=== PATIENT | female | born 1935 | race Caucasian/White ===

== ENCOUNTER → 2016-06-16 | Outpatient (CLI) | payer MEDICARE, MEDICAID ==
[~2016-06-16] MED LIST: DIGO0.1262; DOCU-137; FENO134C; FENO5TAB; GLIP-116; LISI-275; METF-316; SITA100T7
[2016-06-16 13:39] LABS: Basophils # (auto) 0.1 uL; Basophils % (auto) 0.8 % (0.0-2.0); Eosinophils # (auto) 0.2 uL; Eosinophils % (auto) 3.2 % (0.0-7.0); Hematocrit 40.4 % (36.0-46.0); Hemoglobin 13.2 g/dL (12.2-16.2); Lymphocytes # (auto) 1.2 uL; Lymphocytes % (auto) 16.2 % (10.0-50.0); Mean Corpuscular Hgb Conc. 32.7 g/dL (32.0-36.0); Mean Corpuscular Volume 82.6 fL (80.0-100.0); Mean Platelet Volume 7.8 fL (7.4-10.4); Monocytes # (auto) 0.5 uL; Neutrophils # (auto) 5.5 uL; Neutrophils % (auto) 72.8 % (37.0-80.0); Platelet Count (auto) 260 10^3/uL (140-450); White Blood Cell 7.5 10^3/uL (4.4-10.8)
[2016-06-16 14:08] LABS: INR 0.99 (0.9-1.15); Partial Thromboplastin Time 25.4 sec (22.64-33.71); Prothrombin Time 10.2 sec (9.37-12.3)
[2016-06-16 14:21] LABS: Albumin 3.6 g/dL (3.4-5.0); BUN/Creatinine Ratio 20.9; Bilirubin, Total 0.4 mg/dL (0.2-1.0); Calcium 9.2 mg/dL (8.5-10.1); Potassium 4.2 mmol/L (3.5-5.1); Total Protein 7.1 g/dL (6.4-8.2)
== END | disposition home or self-care (01) ==
LOC: LAB 12:54
PROVIDERS: ATTEND Internal Medicine
DX: Z01.812 Encounter for preprocedural laboratory examination (principal)
CPT/HCPCS: 36415; 80053; 83036; 85025; 85610; 85730

== ENCOUNTER 2016-07-07 13:43 | Emergency (ER) | payer MEDICARE, MEDICAID ==
[~2016-07-07] VITALS: Ht 152.4 cm; Wt 70.8 kg
[2016-07-07] MEDS ORDERED: SODIUM CHLORIDE 0.9% 1,000 ML IVB ONE (18:21)
[2016-07-07 18:55] LABS: Urine Bilirubin Negative (Negative); Urine Blood Negative /uL (Negative); Urine Color Yellow (Yellow); Urine Glucose TRACE mg/dL (Normal); Urine Ketone Negative (Negative); Urine Nitrite Negative (Negative); Urine RBC <1 /hpf (0 - 4); Urine Squamous Epithelial Cell FEW /hpf (<5); Urine Urobilinogen Normal (Negative)
[2016-07-07 19:14] LABS: Basophils # (auto) 0.1 uL; Basophils % (auto) 0.8 % (0.0-2.0); Eosinophils # (auto) 0.3 uL; Eosinophils % (auto) 3.6 % (0.0-7.0); Hematocrit 38.2 % (36.0-46.0); Hemoglobin 12.5 g/dL (12.2-16.2); Lymphocytes # (auto) 1.2 uL; Lymphocytes % (auto) 17.2 % (10.0-50.0); Mean Corpuscular Hemoglobin 27.1 pg (28.0-32.0); Mean Corpuscular Hgb Conc. 32.7 g/dL (32.0-36.0); Mean Platelet Volume 7.1 fL (7.4-10.4); Monocytes # (auto) 0.5 uL; Monocytes % (auto) 6.6 % (0.0-12.0); Neutrophils # (auto) 5.2 uL; Neutrophils % (auto) 71.8 % (37.0-80.0); Platelet Count (auto) 321 10^3/uL (140-450); Red Cell Distribution Width 15.2 % (11.6-16.0); White Blood Cell 7.3 10^3/uL (4.4-10.8)
[2016-07-07 19:25] LABS: INR 1.04 (0.9-1.15); Partial Thromboplastin Time 25.7 sec (22.64-33.71); Prothrombin Time 10.7 sec (9.37-12.3)
[2016-07-07 19:37] LABS: Albumin 2.9 g/dL (3.4-5.0); BUN/Creatinine Ratio 20.3; Calcium 8.7 mg/dL (8.5-10.1); Magnesium 1.9 mg/dL (1.6-2.6)
[2016-07-07 19:40] LABS: Bilirubin, Total 0.3 mg/dL (0.2-1.0); Total Protein 6.5 g/dL (6.4-8.2)
[2016-07-07] MEDS ORDERED: GLYCERIN ADULT RECTAL SUPP PR ONE (21:00)
[2016-07-07] MEDS ORDERED: FLEET ENEMA(ADULT) 135 ML PR ONE (21:00)
[2016-07-07 22:59] VITALS: BP 143/92
== END 2016-07-07 23:40 | disposition home or self-care (01) ==
LOC: ER 13:51
DX: R10.9 Unspecified abdominal pain (principal); K59.00 Constipation, unspecified; I25.10 Atherosclerotic heart disease of native coronary artery without angina pectoris; E11.9 Type 2 diabetes mellitus without complications; I10 Essential (primary) hypertension; E07.9 Disorder of thyroid, unspecified; Z90.49 Acquired absence of other specified parts of digestive tract; Z88.0 Allergy status to penicillin
CPT/HCPCS: 36415; 71010; 74176; 80053; 81001; 82150; 83690; 83735; 85025; 85610; 85730; 94761; 96360; 99285; J7030

== ENCOUNTER → 2016-07-21 | Outpatient (CLI) | payer MEDICARE, MEDICAID ==
[~2016-07-21] MED LIST changes: +ALBUTEROL SULF 2.5 MG/0.5ML(0.5%) NEB SOLN ONE
== END | disposition home or self-care (01) ==
LOC: RT 08:48
PROVIDERS: ATTEND Internal Medicine Pulmonary Disease
DX: J84.112 Idiopathic pulmonary fibrosis (principal)
CPT/HCPCS: 94060

== ENCOUNTER → 2016-09-17 | Outpatient (CLI) | payer MEDICARE, MEDICAID ==
[~2016-09-17] MED LIST changes: -ALBUTEROL SULF 2.5 MG/0.5ML(0.5%) NEB SOLN ONE
[2016-09-17 14:36] LABS: Basophils # (auto) 0 uL; Basophils % (auto) 0.6 % (0.0-2.0); Eosinophils # (auto) 0.2 uL; Eosinophils % (auto) 2.3 % (0.0-7.0); Hematocrit 40.3 % (36.0-46.0); Hemoglobin 13.3 g/dL (12.2-16.2); Lymphocytes # (auto) 0.9 uL; Lymphocytes % (auto) 14.2 % (10.0-50.0); Mean Corpuscular Hemoglobin 27.5 pg (28.0-32.0); Mean Corpuscular Volume 83.3 fL (80.0-100.0); Mean Platelet Volume 7.2 fL (7.4-10.4); Monocytes # (auto) 0.4 uL; Monocytes % (auto) 6.6 % (0.0-12.0); Neutrophils % (auto) 76.3 % (37.0-80.0); Platelet Count (auto) 283 10^3/uL (140-450); White Blood Cell 6.6 10^3/uL (4.4-10.8)
[2016-09-17 15:02] LABS: Albumin 3.3 g/dL (3.4-5.0); BUN/Creatinine Ratio 20.8; Bilirubin, Total 0.4 mg/dL (0.2-1.0); Calcium 9.2 mg/dL (8.5-10.1); INR 0.96 (0.9-1.15); Partial Thromboplastin Time 25.6 sec (22.64-33.71); Potassium 4.2 mmol/L (3.5-5.1); Prothrombin Time 10.4 sec (9.37-12.3); Total Protein 6.9 g/dL (6.4-8.2)
[2016-09-17 15:31] LABS: Urine Bilirubin Negative (Negative); Urine Blood Negative /uL (Negative); Urine Color Yellow (Yellow); Urine Glucose 4+ mg/dL (Normal); Urine Ketone Negative (Negative); Urine Nitrite Negative (Negative); Urine RBC 1 /hpf (0 - 4); Urine pH 5.5 (5.0-8.0)
== END | disposition home or self-care (01) ==
LOC: LAB 14:21
PROVIDERS: ATTEND Internal Medicine
DX: Z01.818 Encounter for other preprocedural examination (principal)
CPT/HCPCS: 36415; 80053; 81001; 83036; 85025; 85610; 85730

== ENCOUNTER 2018-05-17 11:41 | Emergency (ER) | payer MEDICARE, MEDICAID ==
[~2018-05-17] VITALS: Ht 152.4 cm; Wt 70.3 kg
[~2018-05-17 11:41] MED LIST changes: -DOCU-137; +DOCU1CAP54; -METF-316; +METF-372; +SENN-51 PO
[2018-05-17] MEDS ORDERED: SODIUM CHLORIDE 0.9% 1,000 ML IVB ONE (12:55)
[2018-05-17] MEDS ORDERED: FLEET MINERAL OIL ENEMA 133 ML PR ONE (13:00)
[2018-05-17 14:24] LABS: Basophils # (auto) 0.1 uL; Basophils % (auto) 1.3 % (0.0-2.0); Eosinophils # (auto) 0.2 uL; Eosinophils % (auto) 3.6 % (0.0-7.0); Hematocrit 41.1 % (36.0-46.0); Hemoglobin 14.1 g/dL (12.2-16.2); Lymphocytes # (auto) 0.8 uL; Lymphocytes % (auto) 11.2 % (10.0-50.0); Mean Corpuscular Hemoglobin 28.9 pg (28.0-32.0); Mean Corpuscular Hgb Conc. 34.2 g/dL (32.0-36.0); Mean Corpuscular Volume 84.5 fL (80.0-100.0); Monocytes # (auto) 0.5 uL; Monocytes % (auto) 7.9 % (0.0-12.0); Neutrophils # (auto) 5.2 uL; Nucleated Red Blood Cells % 0.1 %; Platelet Count (auto) 271 10^3/uL (140-450); Red Blood Cells 4.87 10^6/uL (4.0-5.20); Red Cell Distribution Width 14.6 % (11.8-14.3); White Blood Cell 6.8 10^3/uL (4.4-10.8)
[2018-05-17 14:28] VITALS: BP 149/73
[2018-05-17 14:28] LABS: Urine Bacteria NONE SEEN /hpf (None Seen); Urine Blood Negative /uL (Negative); Urine Specific Gravity 1.021 (1.001-1.035); Urine WBC 9 /hpf (0 - 5)
[2018-05-17 14:33] LABS: Albumin 3.3 g/dL (3.4-5.0); Calcium 8.9 mg/dL (8.5-10.1); Magnesium 1.9 mg/dL (1.6-2.6); Potassium 4.7 mmol/L (3.5-5.1)
[2018-05-17 14:36] LABS: BUN/Creatinine Ratio 28.2; Bilirubin, Total 0.5 mg/dL (0.2-1.0); Total Protein 6.9 g/dL (6.4-8.2)
== END 2018-05-17 16:06 | disposition home or self-care (01) ==
LOC: ER 11:46
DX: K59.00 Constipation, unspecified (principal); E11.65 Type 2 diabetes mellitus with hyperglycemia; N39.0 Urinary tract infection, site not specified; E46 Unspecified protein-calorie malnutrition; I25.10 Atherosclerotic heart disease of native coronary artery without angina pectoris; E11.9 Type 2 diabetes mellitus without complications; I10 Essential (primary) hypertension; E07.9 Disorder of thyroid, unspecified; Z90.49 Acquired absence of other specified parts of digestive tract; Z88.0 Allergy status to penicillin; Z79.84 Long term (current) use of oral hypoglycemic drugs; Z79.899 Other long term (current) drug therapy; Z68.30 Body mass index [BMI] 30.0-30.9, adult
CPT/HCPCS: 36415; 74176; 80053; 80162; 81001; 83690; 83735; 85025; 96360; 99284; J7030

== ENCOUNTER 2018-06-23 21:54 | Emergency (ER) | payer MEDICARE, MEDICAID ==
[~2018-06-23] VITALS: Ht 152.4 cm; Wt 72.1 kg
[2018-06-23 23:30] LABS: Basophils # (auto) 0.1 uL; Basophils % (auto) 0.9 % (0.0-2.0); Eosinophils # (auto) 0.2 uL; Hematocrit 40.7 % (36.0-46.0); Hemoglobin 13.7 g/dL (12.2-16.2); Lymphocytes # (auto) 0.6 uL; Lymphocytes % (auto) 7.4 % (10.0-50.0); Mean Corpuscular Hemoglobin 28.4 pg (28.0-32.0); Mean Corpuscular Hgb Conc. 33.6 g/dL (32.0-36.0); Mean Corpuscular Volume 84.3 fL (80.0-100.0); Monocytes # (auto) 0.5 uL; Neutrophils # (auto) 6.8 uL; Neutrophils % (auto) 83.7 % (37.0-80.0); Platelet Count (auto) 253 10^3/uL (140-450); Red Blood Cells 4.83 10^6/uL (4.0-5.20); Red Cell Distribution Width 14.5 % (11.8-14.3); White Blood Cell 8.1 10^3/uL (4.4-10.8)
[2018-06-23 23:34] LABS: Albumin 3.2 g/dL (3.4-5.0); Calcium 8.4 mg/dL (8.5-10.1); Potassium 4.5 mmol/L (3.5-5.1)
[2018-06-23 23:37] LABS: Bilirubin, Total 0.4 mg/dL (0.2-1.0); Total Protein 6.8 g/dL (6.4-8.2)
[2018-06-24 05:05] VITALS: BP 165/76
== END 2018-06-24 04:56 | disposition home or self-care (01) ==
LOC: ER 21:54
DX: K59.00 Constipation, unspecified (principal); E11.9 Type 2 diabetes mellitus without complications; I10 Essential (primary) hypertension; E07.9 Disorder of thyroid, unspecified; I25.10 Atherosclerotic heart disease of native coronary artery without angina pectoris; Z90.49 Acquired absence of other specified parts of digestive tract; Z88.0 Allergy status to penicillin
CPT/HCPCS: 36415; 74018; 80053; 82962; 85025

== ENCOUNTER 2018-07-14 13:02 | Emergency (ER) | payer MEDICARE, MEDICAID ==
[~2018-07-14] VITALS: Ht 152.4 cm; Wt 70.3 kg
[~2018-07-14 13:02] MED LIST changes: +GLIP-110; +LEVO25TA45; +METF-370; +PIOG15TA38
[2018-07-14 14:50] LABS: Basophils # (auto) 0.1 uL; Basophils % (auto) 1.2 % (0.0-2.0); Eosinophils # (auto) 0.1 uL; Eosinophils % (auto) 1.7 % (0.0-7.0); Hematocrit 39.1 % (36.0-46.0); Hemoglobin 13.4 g/dL (12.2-16.2); Lymphocytes # (auto) 0.9 uL; Lymphocytes % (auto) 10.9 % (10.0-50.0); Mean Corpuscular Hemoglobin 28.3 pg (28.0-32.0); Mean Corpuscular Hgb Conc. 34.2 g/dL (32.0-36.0); Mean Corpuscular Volume 82.6 fL (80.0-100.0); Monocytes # (auto) 0.5 uL; Monocytes % (auto) 5.9 % (0.0-12.0); Neutrophils # (auto) 6.6 uL; Neutrophils % (auto) 80.3 % (37.0-80.0); Platelet Count (auto) 270 10^3/uL (140-450); Red Blood Cells 4.74 10^6/uL (4.0-5.20); Red Cell Distribution Width 15.2 % (11.8-14.3); White Blood Cell 8.2 10^3/uL (4.4-10.8)
[2018-07-14 15:10] LABS: Albumin 3.1 g/dL (3.4-5.0); Anion Gap 10 (5-15); Blood Urea Nitrogen 15 mg/dL (7-18); Calcium 8.5 mg/dL (8.5-10.1); Carbon Dioxide 22 mmol/L (21-32); Chloride 107 mmol/L (98-107); Glucose 146 mg/dL (74-106); Potassium 4.2 mmol/L (3.5-5.1); Sodium 139 mmol/L (136-145)
[2018-07-14 15:12] LABS: Alanine Aminotransferase 16 U/L (13-56); Aspartate Aminotransferase 10 U/L (15-37); BUN/Creatinine Ratio 20.8; GFR African American 99 mL/min; GFR Non-African American 82 mL/min
[2018-07-14 15:28] LABS: Alkaline Phosphatase 82 U/L (45-117); Bilirubin, Total 0.5 mg/dL (0.2-1.0); Total Protein 6.5 g/dL (6.4-8.2)
[2018-07-14] MEDS ORDERED: FLEET ENEMA(ADULT) 135 ML PR ONE (16:15)
[2018-07-14 16:40] LABS: Urine Bacteria NONE SEEN /hpf (None Seen); Urine Blood Negative /uL (Negative); Urine Specific Gravity 1.011 (1.001-1.035); Urine WBC 1 /hpf (0 - 5)
[2018-07-14 18:00] VITALS: BP 145/94
== END 2018-07-14 18:14 | disposition home or self-care (01) ==
LOC: ER 13:08 → MERGE 13:08 → ER 18:14
DX: K59.00 Constipation, unspecified (principal); M54.9 Dorsalgia, unspecified; E11.9 Type 2 diabetes mellitus without complications; I10 Essential (primary) hypertension; E78.5 Hyperlipidemia, unspecified; Z90.89 Acquired absence of other organs; Z90.49 Acquired absence of other specified parts of digestive tract; Z88.0 Allergy status to penicillin
CPT/HCPCS: 36415; 71046; 74176; 80053; 81001; 84484; 85025; 93005

== ENCOUNTER 2018-07-20 21:45 | Emergency (ER) | payer MEDICARE, MEDICAID ==
[~2018-07-20] VITALS: Ht 152.4 cm; Wt 72.6 kg
[2018-07-20 22:11] LABS: Urine WBC None Seen /hpf (0 - 5)
[2018-07-20 22:17] LABS: Urine Bacteria NONE SEEN /hpf (None Seen); Urine Blood Negative /uL (Negative); Urine Specific Gravity 1.007 (1.001-1.035)
[2018-07-20 22:32] LABS: Basophils # (auto) 0 uL; Basophils % (auto) 0.3 % (0.0-2.0); Eosinophils # (auto) 0.1 uL; Eosinophils % (auto) 2.1 % (0.0-7.0); Hematocrit 41.4 % (36.0-46.0); Hemoglobin 13.9 g/dL (12.2-16.2); Lymphocytes # (auto) 0.6 uL; Lymphocytes % (auto) 7.9 % (10.0-50.0); Mean Corpuscular Hemoglobin 28.2 pg (28.0-32.0); Mean Corpuscular Hgb Conc. 33.7 g/dL (32.0-36.0); Mean Corpuscular Volume 83.9 fL (80.0-100.0); Monocytes # (auto) 0.5 uL; Monocytes % (auto) 7.4 % (0.0-12.0); Neutrophils # (auto) 5.8 uL; Neutrophils % (auto) 82.3 % (37.0-80.0); Nucleated Red Blood Cells % 0.1 %; Platelet Count (auto) 292 10^3/uL (140-450); Red Blood Cells 4.93 10^6/uL (4.0-5.20); Red Cell Distribution Width 15.2 % (11.8-14.3); White Blood Cell 7.1 10^3/uL (4.4-10.8)
[2018-07-20 22:49] LABS: Alanine Aminotransferase 13 U/L (13-56); Albumin 3.1 g/dL (3.4-5.0); Anion Gap 11 (5-15); Aspartate Aminotransferase 14 U/L (15-37); BUN/Creatinine Ratio 18.4; Blood Urea Nitrogen 18 mg/dL (7-18); Calcium 8.3 mg/dL (8.5-10.1); Carbon Dioxide 21 mmol/L (21-32); Chloride 107 mmol/L (98-107); GFR African American 70 mL/min; GFR Non-African American 58 mL/min; Glucose 229 mg/dL (74-106); Potassium 4.1 mmol/L (3.5-5.1); Sodium 139 mmol/L (136-145)
[2018-07-20 22:55] LABS: Alkaline Phosphatase 84 U/L (45-117); Bilirubin, Total 0.4 mg/dL (0.2-1.0); Total Protein 6.8 g/dL (6.4-8.2)
[2018-07-21] MEDS ORDERED: MAGNESIUM CITRATE SOLUTION 300 ML BTL PO ONE (03:30)
[2018-07-21 05:04] VITALS: BP 132/100
== END 2018-07-21 03:28 | disposition home or self-care (01) ==
LOC: EDBD 21:45 → ER 21:50
DX: K59.00 Constipation, unspecified (principal); I25.10 Atherosclerotic heart disease of native coronary artery without angina pectoris; E11.9 Type 2 diabetes mellitus without complications; I10 Essential (primary) hypertension; E07.9 Disorder of thyroid, unspecified; Z88.0 Allergy status to penicillin; Z79.84 Long term (current) use of oral hypoglycemic drugs; Z79.899 Other long term (current) drug therapy; Z90.49 Acquired absence of other specified parts of digestive tract
CPT/HCPCS: 36415; 74176; 80053; 81001; 82962; 84484; 85025

== ENCOUNTER → 2018-08-01 | Outpatient (CLI) | payer MEDICARE, MEDICAID | END | disposition home or self-care (01) | LOC: MERGE 08:30 → XY 09:01 | PROVIDERS: ATTEND Internal Medicine | DX: R93.89 Abnormal findings on diagnostic imaging of other specified body structures (principal) | CPT/HCPCS: 78306 ×2; A9503 ==

== ENCOUNTER 2018-08-13 12:43 | Inpatient (IN) | payer MEDICARE, MEDICAID | END 2018-08-18 19:22 | LOC: TELE-WESTW 08-14 14:19 → ER 12:43 → TELE 23:15 | DX: R55 Syncope and collapse (principal); J18.9 Pneumonia, unspecified organism; E44.1 Mild protein-calorie malnutrition; E03.9 Hypothyroidism, unspecified; E11.40 Type 2 diabetes mellitus with diabetic neuropathy, unspecified; J09.X2 Influenza due to identified novel influenza A virus with other respiratory manifestations ==

== ENCOUNTER 2018-09-01 23:02 | Emergency (ER) | payer MEDICARE, MEDICAID ==
[~2018-09-01] VITALS: Ht 162.6 cm; Wt 83.9 kg
[2018-09-02 00:11] LABS: Basophils # (auto) 0.1 uL; Basophils % (auto) 1.1 % (0.0-2.0); Eosinophils # (auto) 0.1 uL; Eosinophils % (auto) 1.3 % (0.0-7.0); Hematocrit 41.3 % (36.0-46.0); Lymphocytes # (auto) 0.6 uL; Mean Corpuscular Hemoglobin 28.4 pg (28.0-32.0); Mean Corpuscular Hgb Conc. 33.9 g/dL (32.0-36.0); Mean Corpuscular Volume 83.6 fL (80.0-100.0); Monocytes # (auto) 0.5 uL; Monocytes % (auto) 6.7 % (0.0-12.0); Neutrophils # (auto) 6.3 uL; Neutrophils % (auto) 82.9 % (37.0-80.0); Platelet Count (auto) 311 10^3/uL (140-450); Red Blood Cells 4.94 10^6/uL (4.0-5.20); Red Cell Distribution Width 15.4 % (11.8-14.3); White Blood Cell 7.6 10^3/uL (4.4-10.8)
[2018-09-02 00:28] LABS: Alanine Aminotransferase 15 U/L (13-56); Albumin 2.9 g/dL (3.4-5.0); Anion Gap 9 (5-15); Aspartate Aminotransferase 13 U/L (15-37); BUN/Creatinine Ratio 17.6; Blood Alcohol < 3.0 mg/dL (0-5); Blood Urea Nitrogen 16 mg/dL (7-18); Calcium 8.9 mg/dL (8.5-10.1); Carbon Dioxide 24 mmol/L (21-32); Chloride 105 mmol/L (98-107); GFR African American 76 mL/min; GFR Non-African American 63 mL/min; Potassium 4.1 mmol/L (3.5-5.1); Sodium 138 mmol/L (136-145)
[2018-09-02 00:32] LABS: Alkaline Phosphatase 103 U/L (45-117); Bilirubin, Total 0.3 mg/dL (0.2-1.0); Total Protein 6.9 g/dL (6.4-8.2)
[2018-09-02 00:36] LABS: Glucose 494 mg/dL (74-106)
[2018-09-02 01:34] LABS: Urine Bacteria NONE SEEN /hpf (None Seen); Urine Blood Negative /uL (Negative); Urine Mucus FEW (None Seen); Urine Specific Gravity 1.029 (1.001-1.035); Urine WBC 2 /hpf (0 - 5)
[2018-09-02 01:44] LABS: Amphetamine Screen, Urine NEGATIVE (NEGATIVE); Barbiturate Scree,Urine POSITIVE (NEGATIVE); Benzodiazephine Screen, Urine NEGATIVE (NEGATIVE); Cannabinoid Screen, Urine NEGATIVE (NEGATIVE); Cocaine Screen, Urine NEGATIVE (NEGATIVE); Opiate Scree,Urine NEGATIVE (NEGATIVE); Phencyclidine Screen, Urine NEGATIVE (NEGATIVE)
[2018-09-02 07:15] VITALS: BP 116/63
== END 2018-09-02 08:55 | disposition home or self-care (01) ==
LOC: EDBD 23:02 → ER 23:07
DX: T50.901A Poisoning by unspecified drugs, medicaments and biological substances, accidental (unintentional), initial encounter (principal); R53.1 Weakness; W19.XXXA Unspecified fall, initial encounter; Y93.9 Activity, unspecified; Y99.8 Other external cause status; Y92.89 Other specified places as the place of occurrence of the external cause
CPT/HCPCS: 36415; 70450; 80053; 80307; 80320; 81001; 83605; 84484; 85025

== ENCOUNTER 2018-10-08 22:52 | Inpatient (IN) | payer MEDICARE, MEDICAID ==
[~2018-10-08] VITALS: Ht 157.5 cm; Wt 59.4 kg
[2018-10-09 00:49] LABS: Basophils # (auto) 0.1 uL; Basophils % (auto) 0.9 % (0.0-2.0); Eosinophils # (auto) 0.1 uL; Eosinophils % (auto) 1.9 % (0.0-7.0); Hematocrit 43.6 % (36.0-46.0); Hemoglobin 14.4 g/dL (12.2-16.2); Lymphocytes # (auto) 0.8 uL; Mean Corpuscular Hgb Conc. 33.1 g/dL (32.0-36.0); Mean Corpuscular Volume 84.5 fL (80.0-100.0); Monocytes # (auto) 0.6 uL; Monocytes % (auto) 8.9 % (0.0-12.0); Neutrophils # (auto) 5.1 uL; Neutrophils % (auto) 76.3 % (37.0-80.0); Nucleated Red Blood Cells % 0.4 %; Platelet Count (auto) 249 10^3/uL (140-450); Red Blood Cells 5.16 10^6/uL (4.0-5.20); Red Cell Distribution Width 15.6 % (11.8-14.3); White Blood Cell 6.7 10^3/uL (4.4-10.8)
[2018-10-09 01:00] LABS: Urine Bacteria NONE SEEN /hpf (None Seen); Urine Blood Negative /uL (Negative); Urine Specific Gravity 1.026 (1.001-1.035); Urine WBC 2 /hpf (0 - 5)
[2018-10-09 01:05] LABS: Potassium 4.6 mmol/L (3.5-5.1)
[2018-10-09 01:10] LABS: Albumin 2.9 g/dL (3.4-5.0); Calcium 8.5 mg/dL (8.5-10.1)
[2018-10-09 01:16] LABS: BUN/Creatinine Ratio 19.4; Bilirubin, Total 0.5 mg/dL (0.2-1.0); Total Protein 6.3 g/dL (6.4-8.2)
[2018-10-09] MEDS ORDERED: LORazepam 2MG/ML-1ML VIAL IV ONE (02:00)
[2018-10-09] MEDS ORDERED: ACETAMINOPHEN 325 MG TAB PO PRN (02:45)
[2018-10-09] MEDS ORDERED: DEXTROSE (50%) 50ML SYRG IV PRN (02:45)
[2018-10-09] MEDS ORDERED: MORPHINE SULF INJ 2 MG/ML SYRINGE 1ML IV PRN (02:45)
[2018-10-09] MEDS ORDERED: ONDANSETRON HCL 4 MG/2 ML VIAL IV PRN (02:45)
[2018-10-09] MEDS ORDERED: NITROGLYCERIN 0.4 MG SL TAB SL PRN (02:45)
[2018-10-09] MEDS: SODIUM CHLORIDE 0.9% 1,000 ML IV SCH ×2 (03:48→18:07)
--- NOTE | 2018-10-09 03:48 | NUR ---
Telemetry admit from ER ALBERTO WILKS admitted to Telemetry unit after no SBAR received. Patient oriented to JOVON FRANCOIS, RN primary RN, unit, room, bed, and unit policies regarding patient care and visiting hours. Patient now on continuous telemetry monitoring, tele box HC-37 and telemetry reading on arrival to unit is sinus rhythm at 85 beats per minute with a bundle branch block. Patient weighed by bedscale and encouraged to call if they need something. All questions and concerns addressed. Patient very lethargic on admission, awakens to name and touch, responds "si" or "no" in Bermudian, but mumbles and is incomprehensible to glove wrapper. Bed in lowest locked position, side rails up x2, call light within reach, sitter at bedside. Will continue to monitor.
[2018-10-09 04:00] VITALS: BP 112/60
[2018-10-09 04:33] VITALS: BP 112/60
--- NOTE | 2018-10-09 04:43 | NUR ---
VACCINATIONS UNABLE TO OBTAIN INFORMATION FORM PATIENT. PATIENT IS LETHARGIC UNABLE TO ANSWER ANY QUESTIONS
--- NOTE | 2018-10-09 04:44 | NUR ---
MED REC UNABLE TO VERIFY HOME MEDS PATIENT IS LETHARGIC, DOES NOT ANSWER ANY QUESTIONS BEING ASKED
[2018-10-09] MEDS: LEVOTHYROXINE SODIUM 50 MCG TAB PO SCH (06:24)
[2018-10-09] MEDS: ACCU-CHEK COMFORT CURVE STRIP VI SCH ×4 (06:26→22:35)
[2018-10-09] MEDS: InsuLIN REG 1unit/0.01ml Soln (100units/ml) SC SCH ×4 (06:33→22:35)
--- NOTE | 2018-10-09 07:13 | NUR ---
Family phone number Patient's son is John, phone number [phone]. Updated John on plan of care after password verified. Patient remains lethargic and thus unable to establish password, but password for patient's previous visits noted to have been "[id number]". All questions and concerns addressed to son Addendum: 10/09/18 at 0750 by JOVON FRANCOIS RN RN CORRECTION: Last sentence should read, "All questions and concerns from son addressed."
--- NOTE | 2018-10-09 07:15 | NUR ---
Closing Note Patient lying in bed, eyes closed, respirations even and unlabored, appears asleep. No s/s of distress. Sitter at bedside. Care endorsed to dayshift RN.
--- NOTE | 2018-10-09 07:48 | NUR ---
Opening Shift Note Assumed care of patient, in bed asleep. No S/S of distress/SOB or pain. Sitter at bedside. Patient is very drowsy, will follow up with instructions on POC and to call for assist PRN, will continue to monitor for changes Q1hr and PRN.
[2018-10-09 08:50] VITALS: BP 103/58
[2018-10-09] MEDS ORDERED: FAMOTIDINE 20 MG TAB PO SCH (10:00)
--- NOTE | 2018-10-09 10:00 | NUR ---
AM medications Patient is still asleep, unable to administer am medications at this time.
--- NOTE | 2018-10-09 10:15 | NUR ---
[facility] Nurse from [facility] in to see patient. The patient is very drowsy, slightly opens eyes to name but not communicating otherwise. She is unable to sign documents at this time.
--- NOTE | 2018-10-09 10:30 | NUR ---
[facility] Leeanna from [facility] called for report on patient, unable to give report at this time, working with another patient. She will call back later.
[2018-10-09] MEDS: ENOXAPARIN SOD 40 MG/0.4 ML SYRINGE SC SCH (10:36)
--- NOTE | 2018-10-09 11:40 | NUR ---
[facility] Leeanna from [facility] called ([phone]) expressing concerns that patient is unable to take care of herself and her son who cares for her is unable to adequately cater to her needs. She stated that they were actively trying to find placement for the patient prior to her admission. She believes that the patient would benefit from SNF placement where her needs can be catered to.
--- NOTE | 2018-10-09 11:48 | NUR ---
Son called for update on patient's condition. Patient is still asleep. Only opens eyes for less than 1 second to name.
--- NOTE | 2018-10-09 11:50 | NUR ---
Asleep Patient still asleep in bed. She opens her eyes slightly to name, but no verbal response. Appears very lethargic.
[2018-10-09 13:00] VITALS: BP 154/72
--- NOTE | 2018-10-09 13:35 | NUR ---
AM medications Patient is still drowsy but more awake. Ate small amount of her lunch. AM medications administered.
[2018-10-09] MEDS: LISINOPRIL 5 MG TAB PO SCH (13:38)
[2018-10-09] MEDS: DIGOXIN 0.125 MG TAB PO SCH (13:39)
[2018-10-09] MEDS: FAMOTIDINE 20 MG TAB PO SCH (13:40)
--- NOTE | 2018-10-09 16:40 | NUR ---
Patient sitting up in chair at bedside, calling for her son John. Phone call made to him ([phone]) and he was transferred to the patient's room so he could speak with her.
[2018-10-09 17:00] VITALS: BP 117/68
[2018-10-09] MEDS: Glucerna Carbsteady SHAKE Vanilla 8oz PO SCH (18:07)
--- NOTE | 2018-10-09 19:00 | NUR ---
Opening Shift Note Assumed care of patient, awake and alert. No S/S of distress/SOB or pain. Pt oriented to self. Speaks in Croatian and Montenegrin. At this time pt calm. PIV infusing without diff. Sitter in room at foot of bed. Bed low. HOB rails up. HOB in semi-Valente's position. Call light at pt's side. Instructed on POC and to call for assist PRN, will continue to monitor for changes Q1hr and PRN.
--- NOTE | 2018-10-09 21:17 | NUR ---
2105 Hospitalist paged. Pt combative, kicked sitter in abd, is screaming "John!" over and over. Call to pt's son, John, only resulted in pt's yelling over the phone that her hands were uncomfortable. John stated to this RN via telephone, "She needs some medicine to help with her anxiety. She had to have this in the prison." Pt kicking and trying to get legs out of bed, "because I want to speak to John," she stated in Azerbaijani to this RN.
--- NOTE | 2018-10-09 21:35 | NUR ---
Paged marketing operations coordinator again as pt increasing agitation and efforts to get out of bed. American speaking RN, Anabell, speaking to pt; pt not calming. Karen Lane RN PATIENT FINANCIAL SERVICES SPECIALIST, answered page within 5 minutes. Order for Ativan 1mg IV q8h prn anxiety received. Pharmacy notified as RN entered order.
[2018-10-09] MEDS: LORazepam 2MG/ML-1ML VIAL IV PRN (21:58)
--- NOTE | 2018-10-09 21:58 | NUR ---
Ativan given as ordered. Pt shouting for Alicio repeatedly; not allowing sitter layout worker to change linens which are wet with urine. Pt answers questions freq. appropriately.
[2018-10-09 22:00] VITALS: BP 156/78
--- NOTE | 2018-10-10 00:56 | NUR ---
Reporting current status of pt to Karen Lane RN DROP WIRE ALIGNER, assistant plant control operator. Order received for benadryl 25mg IV x1. Pt only dozing, quieter. Sitter cont at bedside.
[2018-10-10] MEDS ORDERED: diphenhdrAMINE HCL 50 MG/1 ML VL IV ONE (01:00)
--- NOTE | 2018-10-10 01:48 | NUR ---
Diphenhydramine 25mg IV x1 given slowly and diluted in NS10ml. Pt sleeping. Resps. even.
[2018-10-10 05:19] VITALS: BP 103/61
[2018-10-10] MEDS: SODIUM CHLORIDE 0.9% 1,000 ML IV SCH ×2 (06:19→18:45)
[2018-10-10] MEDS: InsuLIN REG 1unit/0.01ml Soln (100units/ml) SC SCH ×3 (06:26→17:49)
[2018-10-10] MEDS: ACCU-CHEK COMFORT CURVE STRIP VI SCH ×3 (06:27→17:49)
[2018-10-10] MEDS: LEVOTHYROXINE SODIUM 50 MCG TAB PO SCH (06:58)
[2018-10-10 07:12] LABS: Calcium 8.5 mg/dL (8.5-10.1); Potassium 3.4 mmol/L (3.5-5.1)
[2018-10-10 07:17] LABS: Basophils # (auto) 0.1 uL; Basophils % (auto) 2.3 % (0.0-2.0); Eosinophils # (auto) 0.2 uL; Eosinophils % (auto) 3.7 % (0.0-7.0); Hematocrit 40.1 % (36.0-46.0); Hemoglobin 13.6 g/dL (12.2-16.2); Lymphocytes # (auto) 0.8 uL; Lymphocytes % (auto) 12.6 % (10.0-50.0); Mean Corpuscular Hemoglobin 28.2 pg (28.0-32.0); Monocytes # (auto) 0.4 uL; Monocytes % (auto) 7.3 % (0.0-12.0); Neutrophils # (auto) 4.5 uL; Neutrophils % (auto) 74.1 % (37.0-80.0); Nucleated Red Blood Cells % 0.1 %; Platelet Count (auto) 262 10^3/uL (140-450); Red Blood Cells 4.83 10^6/uL (4.0-5.20); Red Cell Distribution Width 15.8 % (11.8-14.3)
[2018-10-10] MEDS: LORazepam 2MG/ML-1ML VIAL IV PRN (07:23)
--- NOTE | 2018-10-10 08:00 | NUR ---
Opening Shift Note Assumed care of patient, awake and alert. No S/S of distress/SOB or pain. Instructed on POC and to call for assist PRN, will continue to monitor for changes Q1hr and PRN.
[2018-10-10 09:00] VITALS: BP 114/70
[2018-10-10] MEDS ORDERED: SENNA 8.6 MG TAB PO ONE (09:30)
[2018-10-10] MEDS: FAMOTIDINE 20 MG TAB PO SCH (09:52)
[2018-10-10] MEDS: ENOXAPARIN SOD 40 MG/0.4 ML SYRINGE SC SCH (09:52)
[2018-10-10] MEDS: DIGOXIN 0.125 MG TAB PO SCH (09:53)
[2018-10-10] MEDS: LISINOPRIL 5 MG TAB PO SCH (09:53)
[2018-10-10] MEDS: Glucerna Carbsteady SHAKE Vanilla 8oz PO SCH ×3 (09:54→17:50)
[2018-10-10 13:00] VITALS: BP 145/70
[2018-10-10 15:08] LABS: Alcohol, Urine < 3.0 mg/dL (0-5); Amphetamine Screen, Urine NEGATIVE (NEGATIVE); Barbiturate Scree,Urine NEGATIVE (NEGATIVE); Benzodiazephine Screen, Urine NEGATIVE (NEGATIVE); Cannabinoid Screen, Urine NEGATIVE (NEGATIVE); Cocaine Screen, Urine NEGATIVE (NEGATIVE); Opiate Scree,Urine NEGATIVE (NEGATIVE); Phencyclidine Screen, Urine NEGATIVE (NEGATIVE)
[2018-10-10 17:00] VITALS: BP 140/68
--- NOTE | 2018-10-10 19:30 | NUR ---
Opening Shift Note Assumed care of patient, awake and drowsy/tired per facial appearance and slowness of verbal responses. JORDYN Méndez, sitting at bedside. No S/S of distress/SOB or pain; pt telling Honey, in Monegasque, she has no pain. Honey interpreting for RN insructing pt on POC. Pt in agreement at this time. RN will continue to monitor for changes PRN. Call light to side of bed. Bed in low position. HOB in semi-Valente's position.
[2018-10-10 22:00] VITALS: BP 135/70
--- NOTE | 2018-10-10 23:50 | NUR ---
Honey, CORONER TECHNICIAN/sitter, accepted well by pt; CORONER TECHNICIAN able to speak Frisian fluently and calm manner calming pt when she becomes anxious/agitated. Honey removed mittens from pt's hands instructing her that if she begins to pull at her tele monitor or IV tubing, she will have to wear the mittens. Pt complying at this time.
[2018-10-11] MEDS: ACCU-CHEK COMFORT CURVE STRIP VI SCH ×4 (01:01→17:54)
[2018-10-11] MEDS: InsuLIN REG 1unit/0.01ml Soln (100units/ml) SC SCH ×4 (01:02→17:54)
[2018-10-11 05:00] VITALS: BP 134/67
[2018-10-11] MEDS: LEVOTHYROXINE SODIUM 50 MCG TAB PO SCH (06:25)
--- NOTE | 2018-10-11 07:16 | NUR ---
This RN and sitter for NOC discussing pt's interaction with people. Pt tried numerous times during night to control by refusing care and pretending to only speak Armenian though she responded to Austrian being spoken about her in the room. Honey told her she could not have only what she wanted without receiving care ordered ans as offered. During A.M. POC and insulin inj., pt responding to this RN who tested her through Austrian only. Pt cooperative and answering appropriately in Austrian. Prev noc shift pt was screaming male name over and over then accidently screamed female form of the name and began laughing and corrected herself. She would yell in Armenian but respond yes or no in Austrian to contradict the RN. She would listen to the RN and answer appropriately in Armenian to PAPER TWISTER for that shift. Now attitude more cooperative.
--- NOTE | 2018-10-11 07:30 | NUR ---
REPORT RECEIVED PATIENT IS RESTING ASLEEP AT THIS TIME, SITTER AT BEDSIDE. TWO SIDE RAILS UP, BED IN LOWEST POSITION WITH BRAKE ON, AND CALL LIGHT IN REACH.
[2018-10-11 08:00] VITALS: BP 127/60
[2018-10-11] MEDS: Glucerna Carbsteady SHAKE Vanilla 8oz PO SCH ×3 (08:00→17:54)
[2018-10-11] MEDS: SODIUM CHLORIDE 0.9% 1,000 ML IV SCH ×2 (08:05→21:25)
[2018-10-11 08:37] VITALS: BP 127/60
[2018-10-11] MEDS: FAMOTIDINE 20 MG TAB PO SCH (09:36)
[2018-10-11] MEDS: DIGOXIN 0.125 MG TAB PO SCH (09:37)
[2018-10-11] MEDS: LISINOPRIL 5 MG TAB PO SCH (09:38)
[2018-10-11] MEDS: ENOXAPARIN SOD 40 MG/0.4 ML SYRINGE SC SCH (09:38)
--- NOTE | 2018-10-11 11:12 | NUR ---
ROUNDING DR BARCENAS ROUNDING PLAN FOR PATIENT TO BE DISCHARGED TODAY WITH PLACEMENT, SOCIAL SERVICE IS WORKING ON RESUMING HOSPICE.
[2018-10-11 13:00] VITALS: BP 142/82
--- NOTE | 2018-10-11 15:11 | NUR ---
NOTIFIED DR BARCENAS THAT PATIENT MAY NOT BE DISCHARGED UNTIL TOMORROW, PER CASE MANAGEMENT JESSY K, PLACEMENT MAY NOT HAPPEN UNTIL TOMORROW. DR BARCENAS IS AWARE.
--- NOTE | 2018-10-11 15:32 | NUR ---
assessment Patient is a 82 year old female who is confused. Prior to admission patient lived home with family and functioned with assistance of her son and daughter in law and [facility]. Patient will need placement on hospice on discharge. I have left a message for John to return my call. Waiting conservation of resources commissioner back now. Addendum: 10/11/18 at 1536 by Taylor RAE Amended: Links added.
[2018-10-11 17:00] VITALS: BP 164/84
--- NOTE | 2018-10-11 19:30 | NUR ---
OPENING SHIFT NOTE ASSUMED CARE OF PATIENT FROM DAY SHIFT RN SEVEN. PATIENT TRYING TO CLIMB OUT OF BED. SITTER IS AT BEDSIDE FOR SAFETY. PATIENT REFUSING TO ANSWER ORIENTATION QUESTIONS. SHE IS ALERT BUT SUSPICIOUS OF RN WHEN ASKING NAME AND DATE OF STATING "WHY YOU NEED ALL MY INFORMATION. PATIENT EDUCATED THAT THE QUESTIONS ARE TO TEST AWARENESS. PATIENT STILL REFUSES TO ANSWER OR STATE UNDERSTANDING. ALSO, PATIENT REFUSING TO ALLOW RN TO HOOK IV LINE TO IV PORT FO9R IV FLUIDS. WILL TRY AGAIN LATER. BED IS LOW, LOCKED, AND CALL LIGHT IS IN REACH. INSTRUCTED TO CALL PRN. WILL CONTINUE TO MONITOR.
[2018-10-11 21:57] VITALS: BP 149/76
--- NOTE | 2018-10-11 23:10 | NUR ---
PATIENT BEHAVIOR STATUS PATIENT TRYING TO GET OUT OF BED WHILE SCREAMING ARNIE REPEATEDLY. SHE IS ALSO PULLING AT IV AND REFUSING IV FLUIDS TO BE PLACED. SHE IS KICKING AT RN AND SITTER. PATIENTS SON ARNIE WAS CALLED SO THAT THE PATIENT COULD TALK WITH HIM. ONCE SON HUNG UP, PATIENT AGAIN SCREAMING FOR HIM. EDUCATION, REORIENTATION, DISTRACTION , AND TOILETING WERE ALSO TRIED. WILL CONTINUE TO MONITOR.
--- NOTE | 2018-10-12 | NUR ---
PATIENT BEHAVIOR STATUS/HOSPITALIST PAGED PATIENT STILL HAS NOT IMPROVED. SHE IS STILL YELLING, KICKING AT STAFF, AND TRYING TO GET OUT OF BED. HOSPITALIST PAGED.
--- NOTE | 2018-10-12 00:05 | NUR ---
HOSPITALIST RETURNED CALL 25MG IV BENADRYL ONCE ORDERED.
[2018-10-12] MEDS: ACCU-CHEK COMFORT CURVE STRIP VI SCH ×3 (00:16→12:08)
[2018-10-12] MEDS: InsuLIN REG 1unit/0.01ml Soln (100units/ml) SC SCH ×3 (00:17→12:07)
[2018-10-12] MEDS ORDERED: diphenhdrAMINE HCL 50 MG/1 ML VL IV ONE (01:00)
--- NOTE | 2018-10-12 02:15 | NUR ---
PATIENT STATUS/BEHAVIOR/HOSPITALIST PAGED PATIENTS BEHAVIOR CONTINUES TO ESCALATE REGARDLESS OF CALMING INTERVENTIONS TRIED. LOW LIGHT, CALM VOICE, DISTRACTION, REORIENTATION, MEDICATION, AND TOILETING. HOSPITALIST PAGED AGAIN.
[2018-10-12] MEDS ORDERED: HALOPERIDOL LACTATE 5 MG/ML INJ VIAL IM PRN (02:30)
--- NOTE | 2018-10-12 02:30 | NUR ---
HOSPITALIST RETURNED PAGE ORDER RECEIVED HALDOL 2.5 MG Q12 IM. WILL CARRY OUT.
--- NOTE | 2018-10-12 03:25 | NUR ---
PATIENT STATUS/BEHAVIOR PATIENT IS LAYING IN BED WITH EYES OPEN. HER RESPIRATIONS ARE EVEN AND UNLABORED. SHE IS SMILING, CALM AND RELAXED AT THIS TIME TALKING IN A NORMAL TONE. WILL CONTINUE TO MONITOR.
[2018-10-12 05:47] VITALS: BP 116/61
[2018-10-12] MEDS: LEVOTHYROXINE SODIUM 50 MCG TAB PO SCH (06:39)
--- NOTE | 2018-10-12 06:59 | NUR ---
CLOSING SHIFT NOTE PATIENT IS CALM AND RELAXED. SITTER IS AT BEDSIDE FOR SAFETY. BED IS LOW, LOCKED, AND CALL LIGHT IS IN REACH. CARE TRANSFERRED TO DAY SHIFT MELECIO SHAIKH.
--- NOTE | 2018-10-12 07:15 | NUR ---
Opening Shift Note Assumed care of patient, awake and alert up in chair, safety officer at bedside. No S/S of distress/SOB or pain. Instructed on POC and to call for assist PRN, will continue to monitor for changes Q1hr and PRN.
[2018-10-12 08:00] VITALS: BP 116/61
[2018-10-12] MEDS: LISINOPRIL 5 MG TAB PO SCH (10:00)
[2018-10-12] MEDS: DIGOXIN 0.125 MG TAB PO SCH (10:27)
[2018-10-12] MEDS: ENOXAPARIN SOD 40 MG/0.4 ML SYRINGE SC SCH (10:28)
[2018-10-12] MEDS: FAMOTIDINE 20 MG TAB PO SCH (10:28)
--- NOTE | 2018-10-12 10:30 | NUR ---
Son at bedside visiting.
[2018-10-12] MEDS: SODIUM CHLORIDE 0.9% 1,000 ML IV SCH (10:45)
[2018-10-12] MEDS: Glucerna Carbsteady SHAKE Vanilla 8oz PO SCH ×2 (11:11→12:08)
--- NOTE | 2018-10-12 12:20 | NUR ---
re-assessment Patients mimi Lopez is at bedside. Per John Patient will return to [facility] on discharge. Per John he agrees with placement. Per Carolynn at [facility] patient will go to [facility] room 16b on hospice. Per Carolynn [facility] patient will be transported at 1pm by [facility]. John verbalized understanding and agreed with discharge plan to [facility] on hospice. Addendum: 10/12/18 at 1327 by Taylor RAE Amended: Links added.
[2018-10-12 12:37] VITALS: BP 104/59
[2018-10-12 13:24] VITALS: BP 105/55
--- NOTE | 2018-10-12 13:30 | NUR ---
Report given to NEEMA MAJANO at [facility] for continuation of care.
--- NOTE | 2018-10-12 13:45 | NUR ---
Notified family Nichole Flowers that patient discharged/transferred to detention.
--- NOTE | 2018-10-12 13:55 | NUR ---
Patient's son John called, aware of transfer to [facility].
--- NOTE | 2018-10-12 13:55 | NUR ---
Patient refusing transfer to the retirement. Taylor Wide Area Network Engineer informed. Explained and Educated to patient the need to go to the retirement.
[2018-10-12] MEDS ORDERED: HALOPERIDOL LACTATE 5 MG/ML INJ VIAL ONE (14:15)
[2018-10-12] MEDS ORDERED: HALOPERIDOL LACTATE 5 MG/ML INJ VIAL IM ONE (14:15)
--- NOTE | 2018-10-12 14:15 | NUR ---
made aware of patient being agitated and refusing transfer to halfway. Recieved order for Haldol, see order written.
--- NOTE | 2018-10-12 14:20 | NUR ---
Haldol 5mg IM given as ordered.
--- NOTE | 2018-10-12 14:35 | NUR ---
Patient calm, more cooperative, transferred to [facility]. Transported to [facility] by [facility].
== END 2018-10-12 14:30 | DRG 917 ==
LOC: EDBD 22:52 → ER 22:55 → TELE 10-09 02:35 → TELE-WESTW 10-09 03:55
PROVIDERS: ADMIT Nurse Practitioner; ATTEND Internal Medicine
DX: T40.2X1A Poisoning by other opioids, accidental (unintentional), initial encounter (principal); G92 Toxic encephalopathy; E44.0 Moderate protein-calorie malnutrition; R62.7 Adult failure to thrive; I50.9 Heart failure, unspecified; I11.0 Hypertensive heart disease with heart failure; E11.21 Type 2 diabetes mellitus with diabetic nephropathy; E78.5 Hyperlipidemia, unspecified; F03.90 Unspecified dementia, unspecified severity, without behavioral disturbance, psychotic disturbance, mood disturbance, and anxiety; Z51.5 Encounter for palliative care; Z80.9 Family history of malignant neoplasm, unspecified; Z83.3 Family history of diabetes mellitus; Z88.0 Allergy status to penicillin; Z90.49 Acquired absence of other specified parts of digestive tract
CPT/HCPCS: 96374; 99285; J7030; 36415; 70450; 71045; 74176; 80048; 80053; 80162; 80307; 81001; 82962; 83036; 83880; 84443; 85025; 87081; G0378; J1815